=== PATIENT | male | born 1965 | race Caucasian/White ===

== ENCOUNTER 2022-08-23 09:49 | Emergency (ER) | payer OTHER ==
[2022-08-23] MEDS ORDERED: Ketorolac 30 MG/ML SDV IM ONE (10:28)
== END 2022-08-23 12:12 | disposition home or self-care (01) ==
LOC: JP.ED 09:49
DX: S06.0X0A Concussion without loss of consciousness, initial encounter (principal); Z88.0 Allergy status to penicillin; W18.09XA Striking against other object with subsequent fall, initial encounter
CPT/HCPCS: 70450; 96372; 99284; J1885